=== PATIENT | male | born 1965 | race Caucasian/White ===

== ENCOUNTER 2019-10-27 09:58 | Outpatient (CLI) | payer BC ==
--- NOTE | 2019-10-28 07:55 | RAD ---
XR Lumbar Spine 2 Or 3 View HISTORY: Low back pain. 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 No acute fracture, subluxation or bony destruction is identified.
== END 2019-10-27 09:59 | disposition home or self-care (01) ==
LOC: RAD 09:58
PROVIDERS: ATTEND Family Medicine
DX: M47.816 Spondylosis without myelopathy or radiculopathy, lumbar region (principal)
CPT/HCPCS: 72100